=== PATIENT | female | born 1940 | race Caucasian/White ===

== ENCOUNTER → 2017-06-10 | Outpatient (CLI) | payer MEDICARE, OTHER ==
[~2017-06-10] MED LIST: BENADRYL25 M3 PO; BYSTOLIC5 MG PO; GABAPENTIN300 MG PO; LOSARTAN POTASS50 MG PO; NORVASC 10MG. T10 MG PO; PRILOSEC20 M1 PO; VIMOVO 20 MG-501 TCP PO
--- NOTE | 2017-06-13 13:35 | RADIOLOGY REPORT PS360 ---
MRI-L-SPINE W/O, MRI-3D RENDERING/MYELOGRAM Ordering Physician: Gabriele Louis MD Patient Age: 76 years: Female HISTORY: LOW BACK PAIN, PAIN IN THORACIC & LUMBAR SPINE. thoracic and lumbar low back pain for years but has gotten worse recently. Bilateral leg pain. TECHNIQUE: Sagittal STIR, T1, T2, axial T1 and T2. On 1.5T Siemens wide bore MRI. 3-D MR myelogram image set obtained & performed on MRI workstation. Additional sagittal thin section T2 weighted dataset obtained from this latter acquisition as well (---76 CPT) COMPARISON is made to previous plain films lumbar spine 06/03/2011 FINDINGS -------- Diffuse Abnormal marrow signal, throughout lumbar spine and T-spine . Overall abnormal low signal is stippled appearance throughout a reflecting loss of normal fatty marrow. Nonspecific feature but can be seen with anemia or underlying myelogenous abnormalities. Marrow signal abnormalities also encountered increased incidence smokers & females. Recommend correlation with CBC and serum electrophoresis Incidental 2.7 cm cyst at the medial right kidney similar to previous CT September 2016. Degenerative disc at Lower 3 levels lumbar, with associated of circumferential marginal osteophytes,-most evident anteriorly but also withposterior hypertrophic ridging posteriorly at L5/S1, L4/5 and L3/4.. Mild levoscoliosis within this region . L5/S1. Degenerative disc space narrowing with mild grade 1 listhesis. Posterior hypertrophic ridging with disc bulge ovary is slightly more evident to the right. Exuberant Facet hypertrophy and arthropathy with increased fluid at the facet joints bilaterally reflecting such.. . Features combine to yield at least moderate bilateral foraminal encroachment right greater than left. Moderately pronounced spinal stenosis L4/5 marked degenerative disc space narrowing mild posterior hypertrophic ridging with slight 3 mm posterior listhesis of L4 on 5. Prominent exuberant facet hypertrophy right greater than left. Features combine to narrow the spinal canal and yield moderately pronounced central canal spinal stenosis. Generous bilateral foraminal encroachment. L3/4. Degenerative disc space narrowing. Circumferential marginal osteophytes with [id number] diffuse posterior hypertrophic ridging. Additional foraminal disc bulge-. This along with the prominent facet hypertrophy encroach upon the right foramen greater than left. An indent the right thecal sac greater the left. Moderately pronounced central canal stenosis also evident. . Also note thickened bone posteriorly involving lamina beginning at this level and continuing to the lower T-spine. Osseous thickening of the lamina and some posterior elements with no osseous destruction. Similar pattern was seen on 2016 CT chest which includes lower T-spine and upper lumbar... this may may merely reflect some localized thickened hypertrophic bone but cannot exclude a localized area Paget's disease of bone. L2/3. Mild decreased height with mild Loss of disc hydration but no posterior bulge and neural foramen widely patent. L1/2 disc intact as is T12/L1 and T11/12.. 3-D MR myelogram image set shows the spinal stenosis at L5/S1 L4/5 L3/4. Also notable fluid at L5/S1 facet joints left greater than right IMPRESSON-------- 1. Multilevel degenerative disc, & spondylosis with progressively prominent facet arthropathy/hypertrophy at the lower 3 levels of L-spine as detailed in text . Resulting multilevel central canal spinal stenosis, with bilateral foraminal encroachment at L3/4, L4/L5 L5/S1. 2. Diffuse osseous thickening of the lamina is incidentally noted throughout posterior upper lumbar and lower thoracic spine beginning at L3 continue to at least T10-11 level. Nonspecific appearance. QuestionPaget's disease of bone... Similar appearance dating back to September 2016 CT chest.
--- NOTE | 2017-06-14 15:37 | RADIOLOGY REPORT PS360 ---
MRI-T-SPINE W/O Ordering Physician: Gabriele Louis MD Patient Age: 76 years: Female HISTORY: LOW BACK PAIN, PAIN IN THORACIC SPINE mid and low back pain for years but has gotten worse. Bilateral leg pain. TECHNIQUE: Sagittal T1-T2 STIR along with axial T1 and T2 imaging 1.5 to MRI. FINDINGS Marrow signal abnormalities again noted. .As also observed on MRI lumbar spine from today, there is a inhomogeneous signal changes throughout the marrow of the thoracic as well as lumbar spine as well as all visualized bones on these images. Diffuse process.. Somewhat stippled inhomogeneous loss of fatty marrow signal, at some vertebra more than others. Again this may reflect history of smoking, anemia or other conditions which result in partial marrow conversion but the possibility of underlying myeloid abnormality is been catheter in mind. Suggest correlated with manual CBC to survey for any additional myeloid pattern abnormalities.. Suggest serum electrophoresis as well in this case. I see no expansile lesions of the vertebra that would raise additional concern regarding metastatic disease infiltrate with this reflects. Also Again is seen on previous Sep 2016 CT chest as well as the basal lumbar MR, there is diffuse bony fusion and thickening at the lamina and posterior elements of the lower thoracic spine, which continues into the upper lumbar spine.. Conceivably Could reflect pagetoid type bone changes. Or ankylosis of posterior elements of some form.. Less likely fibrous dysplasia changes In either case this appears to be fairly stable since 2016 CT chest and osseous bone formation feature, not a destructive process. It does not appear to be encroaching upon the spinal canal as of yet The patient has dextro scoliosis with exuberant marginal osteophytes to the leftq most evident at T7/[address] study September 2016 Today's partial images Lower C-spine noting mild spondylosis. Mild posterior ridging most evident C5-C6 and less evident C6/7. The disc appears perhaps slightly narrowed at C7/T1, T1/T2 but intact posteriorly. T5-T6 with some scant posterior ridging and negligible. Not significant. T 7/8.. Degenerative disc space narrowing most evident the left. Trace posterior hypertrophic ridging spondylosis. This slightly indents thecal sac. Midline and to the left. Mild left foraminal encroachment at T6/7 and T 7/8. The disc spaces below this appear intact. No disc protrusion or remarkable spondylosis. IMPRESSION.................. 1.... No compression fractures.. No expansile nor destructive lesion. No acute findings T-spine 2.*However Again note diffuse marrow changes of the thoracic spine and involving all visualized bones.. Note comments in body of report. 3. Generous Dextroscoliosis mid T-spine (nearly [address]. With dextroscoliosis most pronounced at T7/8. Associated large marginal osteophyte extending to the left at this T 7/8 level; with large but less pronounced marginal osteophyte the left at T6/7. . Disc space narrowing most evident to the left at this T7/8 level,. The exuberant leftward marginal osteophytes hereUnchanged since previous CT chest study September 2016. .. It is mainly the dextroscoliosis which appears to yield some narrowing of the left foramen at both T7/8 & less evident at T 6/7.. Only subtle scant posterior ridging to the left T7/8 & perhaps at T 6/7 which may also contribute to the mild left foraminal encroachment. 4. Also again note unusual thickening of bone throughout the posterior elements from T8, continuing through to the the upper lumbar spine-.... Could reflectpagetoid type bone changes or some bony proliferative process. In either case it Does not encroach nor narrow the spinal canal..
== END ==
LOC: RAD 13:51
DX: M54.6 Pain in thoracic spine (principal); M51.36 Other intervertebral disc degeneration, lumbar region; M47.816 Spondylosis without myelopathy or radiculopathy, lumbar region; M12.88 Other specific arthropathies, not elsewhere classified, other specified site; M51.34 Other intervertebral disc degeneration, thoracic region; M47.814 Spondylosis without myelopathy or radiculopathy, thoracic region; M54.5 Low back pain

== ENCOUNTER → 2017-08-22 | Outpatient (CLI) | payer MEDICARE, OTHER ==
--- NOTE | 2017-09-01 11:10 | RADIOLOGY REPORT PS360 ---
US BREAST-RT COMPLETE W/AXILLA HISTORY: RT BREAST PAIN, HX BREAST CAright breast pain episode 3 weeks ago Patient Age: 76 years: Female Ordering Physician: KATLYN TOBIAS TECHNIQUE: Ultrasound right breast including axilla survey COMPARISON :Bilateral mammogram April 22, 2017 and March 2016 now availablefrom [place] Also CT chest September 2016 FINDINGS Outside studies from [place] have arrived & now available The ultrasound right breast demonstrates the at up to 1.5 cm length hypoechoic area & irregularities would seem to match the site of previous surgery at medial right breast. 2 o'clock position deep right breast. . This area as noted on prior mammogram but is even more evident on this CT study from 10/25/2016 seen at deep medial right breast along chest wall.. The outside mammograms do show numerous vascular clips with mild architectural distortion residual here from previous lumpectomy site.. But may not fully imaged at the medial aspect of left breast based on September CT appearance Although slightly more pronounced than I would've expected from the mammogram the ultrasound findings today seen to match the prior CT. Nonetheless with this patient's history and the in the focal density at the chest wall seen on September CT in our facility, I would recommend she return for spot views at the medial breast and to survey the site of surgery, as well confirm stability area at at 10:00 discussed below.. On this can be done at our facility [facility] . However I would encourage if feasible utilizing consistent breast imaging facility follow-up at this tends to be best for the patient's most timely & optimal care,. We would be glad to serve her moving forward if she desire follow-up diagnostic mammograms at this facility. Other benign-appearing areas noted on today's ultrasound: At the 10:00 right breast there is a small 4.7 mm calcified rim from a benign oil cyst,/or benign of fat necrosis. There is corresponding benign spherical calcifications at the lateral right breast on now available outside plain films. There is a elongated area tissue seen at 10:00 near the nipple. Nonspecific. I believe is merely elongated area of fibroglandular tissue. Axillary survey right breast a demonstrates no significant findings. Benign appearing lymph node node observed. IMPRESSION: 1... The prominent hypoechoic area at 2:00 deep lateral breast most compatible with the postsurgical site. Outside mammograms have arrived & do show minimal density at the lumpectomy postsurgical changes towards this area deep medial right breast. However previous CT chest at this facility from September 2016 shows a more prominent density along which extends back to the chest wall, at this postsurgical site which seems to best correlate with today's ultrasound. Given overall appearance would suggest patient obtain follow-up spot views of the deep medial right breast postsurgical site., This should be correlated with the CT September 2016 as well as mammogram.. 2. Ultrasound also reveals a Ridge of what I favor is most likely benign fibroglandular tissue is seen at 10:00 on position towards towards towards the nipple and central breast.. This area will also be evaluated on the follow-up mammogram images . BI-RADS CATEGORY: 0_Incomplete: Need additional imaging RECOMMENDED FOLLOWUP:. ADD ADDITIONAL mammogram IMAGING MLO cc view along with additional spot views surgical site deep medial right breast towards chest wall. (A letter has been sent to the patient regarding results of the study.)
== END ==
LOC: RAD 10:47
DX: N64.4 Mastodynia (principal); Z85.3 Personal history of malignant neoplasm of breast

== ENCOUNTER → 2017-09-14 | Outpatient (CLI) | payer MEDICARE, OTHER ==
--- NOTE | 2017-09-16 10:54 | RADIOLOGY REPORT PS360 ---
DIG MAMM-DX UNI-RT W/CAD Additional spot views right breast Ordering Physician: KATLYN TOBIAS Patient Age: 76 years Female COMPARISON: 04/24/2017And March 2016 outside mammogram. [place] INDICATION: Breast cancer. Lumpectomy Density TECHNIQUE: MLO, 90 degree, mL and MLO spot, additional deep medial cc spot views FINDINGS: Additional spot views performed at right breast included medial cc and rotated CC spot views performed. The previous lumpectomy scarsite at far medial & deep right breast is difficult to image with mammography. It Resides adjacent to the chest wall.- By mammography this area appears similar to the previous outside studies March 2016 and March 2017. Similar size density and similar architectural distortion/scarring.No good evident progression evident on today's mammography which appeared to image the majority of this density.. (Specifically Note 6 vascular clips on today's study which is similar to prior mammogram studies. On prior CT likely only 1 additional deeper vascular clips not included on today's mammogram). The overall size of this region has not enlarged appreciably on recent ultrasound versus prior CT It will be be important to follow this area clinically as it is difficult site to image with mammography due to its very deep position and overlying chest wall along with the postsurgical densities & distortion seen here.; and is quite hypoechoic with shadowing by recent ultrasound.. If this site should progress clinically and become more evident on physical exam or if chest pain develops at this site, then follow-up CT would be helpful in this case follow-up. FNA of any enlarging palpable area may also be utilized. However given that it appears fairly stable since 2015 on the today's mammogram views of this area , , which seems to include the majority of the area and nearly all of the vascular clips, ..this mammography would support stability and suggested this point it be followed with bilateral mammogram & breast ultrasound February-March 2018.. IMPRESSION: ======== Difficult mammogram study due to the postsurgical changes & focal scarring medial right breast. -With this Additional medial cc spot views were performed to better image this postsurgical lumpectomy site at deep medial right breast overlying the chest wall. By mammography this area is not changed appreciably since 2015 and 2016 outside studies.. Although somewhat concerning appearance on recent ultrasound it head not enlarged since September 2016 CT chest which nicely showed this region.,. The stability of today's mammography image, which includes majority this density, is partially reassuring as well-however this area warrants continued close follow-up Close clinical follow-up would be important here... Particularly mammography imaging somewhat limited here due to the deep position of the area as well postsurgical changes . If any clinical progression or enlargement at this site or clinical concern-consider followup FNA aspiration biopsy of this area and/or follow-up CT chest.. *At this point suggest Bilateral follow-up mammogram with right breast ultrasound March 2018 BI-RADS CATEGORY: 3_Probably Benign-Short Term F/U RECOMMENDED FOLLOWUP: 6M- MONTH FOLLOW-UP Bilateral mammogram to resume annual scheduled along with right breast ultrasound (A letter has been sent to the patient regarding results of the study.)
== END ==
LOC: RAD 13:32
DX: Z85.3 Personal history of malignant neoplasm of breast (principal)
CPT/HCPCS: G0206-RT

== ENCOUNTER → 2017-10-12 | Outpatient (CLI) | payer MEDICARE, OTHER | LOC: LAB 09:26 | DX: E03.9 Hypothyroidism, unspecified (principal) ==